=== PATIENT | male | born 1960 | race Caucasian/White ===

== ENCOUNTER 2018-02-03 20:31 | Emergency (ER) | payer OTHER ==
[2018-02-03 21:01] VITALS: BP 152/77; PULSE 88; RESP 18; TEMP 98.3; O2SAT 100
--- NOTE | 2018-02-03 21:28 | ED PDOC ---
HPI: Head Injury Time Seen by Provider: 02/03/18 21:01 Chief Complaint (Nursing): Trauma Chief Complaint (Provider): Head laceration History Per: Patient History/Exam Limitations: no limitations Injury Occurred (Timing): Just Before Arrival Patient States: Struck With Object Severity: None Loss Of Consciousness: No Additional Complaint(s): 57 year old male presents to the emergency department with a head laceration. Patient states that about 1 hour prior to arrival he was in his basement when he struck his head against a sprinkler in the low lying ceiling causing injury. Denie sloss of consciousness, anticoagulant use, nausea, vomiting. PMD: Asif Chen Past Medical History Reviewed: Historical Data, Nursing Documentation, Vital Signs Vital Signs: Last Vital Signs Temp 98.3 F 02/03/18 20:56 Pulse 88 02/03/18 20:56 Resp 18 02/03/18 20:56 BP 152/77 H 02/03/18 20:56 Pulse Ox 100 02/03/18 20:56 - Medical History PMH: No Chronic Diseases - Surgical History Surgical History: No Surg Hx - Family History Family History: States: Unknown Family Hx - Social History Current smoker - smoking cessation education provided: No Alcohol: Social Drugs: Denies - Allergies Allergies/Adverse Reactions: Allergies Allergy/AdvReac Type Severity Reaction Status Date / Time cat dander Allergy ITCHING Verified 02/03/18 21:02 shellfish derived Allergy ANGIOEDEMA Verified 02/03/18 21:02 Review of Systems ROS Statement: Except As Marked, All Systems Reviewed And Found Negative Gastrointestinal: Negative for: Nausea, Vomiting Skin: Positive for: Other (Head laceration) Neurological: Negative for: Headache Physical Exam - Reviewed Nursing Documentation Reviewed: Yes Vital Signs Reviewed: Yes - Physical Exam Appears: Positive for: Non-toxic, No Acute Distress Head Exam: Negative for: ATRAUMATIC (right sided posterior parietal scalp 3cm linear superficial laceration no active bleeding ) Skin: Positive for: Normal Color, Warm, Dry. Negative for: Rash Cardiovascular/Chest: Positive for: Regular Rate, Rhythm, Chest Non Tender. Negative for: Tachycardia Respiratory: Positive for: Normal Breath Sounds. Negative for: Rales, Rhonchi, Wheezing, Respiratory Distress Neurologic/Psych: Positive for: Alert, Oriented, Gait. Negative for: Motor/ Sensory Deficits - ECG O2 Sat by Pulse Oximetry: 100 (RA) Pulse Ox Interpretation: Normal Medical Decision Making Medical Decision Makin Initial Impression 57 year old male presenting with had laceration Initial Plan: Pt. informed that du are to be removed with PMD or can return to ED in 5-7 days. Given wound care instructions. Documented by Itzel Shearer acting as a scribe for Lion Fletcher PA-C. All medical record entries made by the Scribe were at my direction and personally dictated by me. I have reviewed the chart and agree that the record accurately reflects my personal performance of the history, physical exam, medical decision making, and the department course for this patient. I have also personally directed, reviewed, and agree with the discharge instructions and disposition. Procedures - Time-Out Type of Procedure: Laceration repair Site of Procedure: Scalp Correct Patient (with visual ID + MR# on ID Band): Yes Correct Procedure: Yes PA/Tech: Chance OLEA - Laceration/Wound Repair Laceration repair Wound Length (cm): 3 Wound's Depth, Shape: superficial, linear Wound Explored: clean Irrigated w/ Saline (ccs): 100 Wound Repaired With: [place] (2) Wound Complexity: Simple Progress: Bacitracin ointment applied. Disposition - Clinical Impression Clinical Impression: Head injury, Scalp laceration - Patient ED Disposition Is Patient to be Admitted: No - Disposition Referrals: [facility] [Outside] Disposition: Routine/Home Disposition Time: 21:26 Condition: STABLE Additional Instructions: EZEQUIEL OLIVERA, thank you for letting us take care of you today. Your provider was Jad Luis MD and you were treated for HEAD LACERATION. The emergency medical care you received today was directed at your acute symptoms. If you were prescribed any medication, please fill it and take as directed. It may take several days for your symptoms to resolve. Return to the Emergency Department if your symptoms worsen, do not improve, or if you have any other problems. Please contact your doctor or call one of the physicians/clinics you have been referred to that are listed on the Patient Visit Information form that is included in your discharge packet. Bring any paperwork you were given at discharge with you along with any medications you are taking to your follow up visit. Our treatment cannot replace ongoing medical care by a primary care provider outside of the emergency department. Thank you for allowing the [facility] team to be part of your care today. If you had an X-Ray or CT scan: A Radiologist will review the ED reading if any change in treatment is needed we will contact you. If you had a blood, urine, or wound culture: It will take several days for the results, if any change in treatment is needed we will contact you. If you had an STI test: It will take 48 hours for the results. Please call after 1 week if you have not heard back. Instructions: Laceration Repair With Du (DC), Minor Head Injury (DC) Forms: [employer] (Ukrainian) Print Language: CROATIAN
== END 2018-02-03 21:47 | disposition home or self-care (01) ==
LOC: MERGE 20:31 → H.ER 20:31
DX: S01.01XA Laceration without foreign body of scalp, initial encounter (principal); S09.90XA Unspecified injury of head, initial encounter; W22.8XXA Striking against or struck by other objects, initial encounter